=== PATIENT | female | born 1955 | race Caucasian/White ===

== ENCOUNTER 2018-12-21 18:00 | Inpatient (IN) | payer OTHER ==
[2018-12-21] MEDS ORDERED: NS 1,000 ML IV ONE (18:20)
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
[2018-12-21] MEDS ORDERED: METOCLOPRAMIDE 10 MG/2 ML VIAL IVP ONE (18:21)
[2018-12-21] MEDS ORDERED: IOPAMIDOL (ISOVUE 370) 100 ML BTL IV ONE (18:22)
[2018-12-21 18:27] LABS: PLATELET COUNT 380 10^3/uL (150-400)
[2018-12-21 18:37] LABS: INR 0.93 (0.83-1.16); PROTIME(PATIENT) 12.7 SEC (12.0-15.0)
[2018-12-21] MEDS ORDERED: HYDROmorphONE/DILAUDID 2 MG/ML INJ IVP ONE (19:01)
--- NOTE | 2018-12-21 19:15 | CPEKG ---
Test Reason : OPEN Blood Pressure : / mmHG Vent. Rate : 074 BPM Atrial Rate : 074 BPM P-R Int : 161 ms QRS Dur : 101 ms QT Int : 413 ms P-R-T Axes : 060 038 059 degrees QTc Int : 459 ms Sinus rhythm Low voltage, precordial leads Confirmed by Edwin Wilde ([id number]) on 12/21/2018 7:15:06 PM Referred By: EDWIN WILDE Confirmed By:Edwin Wilde
[2018-12-21] MEDS ORDERED: ONDANSETRON 4 MG/2 ML VIAL ONE (20:18)
[2018-12-21] MEDS ORDERED: ONDANSETRON 4 MG/2 ML VIAL IVP ONE (20:19)
[2018-12-21] MEDS ORDERED: ONDANSETRON 4 MG/2 ML VIAL IVP PRN (20:36)
[2018-12-21] MEDS ORDERED: MECLIZINE HCL 25 MG TAB PO ONE (21:45)
[2018-12-21] MEDS ORDERED: MECLIZINE HCL 25 MG TAB ONE (21:46)
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
[2018-12-21] MEDS: IBUPROFEN 600 MG TAB PO SCH ×2 (22:29→22:46)
[2018-12-21] MEDS: D5W 1/2 NS 1,000 ML IV SCH (22:45)
[2018-12-21] MEDS: ACETAMINOPHEN 325 MG TAB PO PRN (22:48)
[2018-12-21] MEDS ORDERED: PROMETHAZINE HCL 25 MG/ML INJ IVP PRN (23:12)
[2018-12-22] MEDS: ONDANSETRON DISINTEGRATING 4 MG TAB PO PRN ×3 (00:30→17:57)
[2018-12-22] MEDS: ACETAMINOPHEN 325 MG TAB PO PRN ×2 (03:51→15:59)
[2018-12-22] MEDS: IBUPROFEN 600 MG TAB PO SCH ×3 (06:25→21:54)
--- NOTE | 2018-12-22 15:13 | ASMTCMCOM ---
CM Note CM Note Notes: Pt has concussion after fall on ice. OT/PT/HEAD BANQUET WAITRESS clear pt for home. Pt will have someone stay with her at d/c. No CM d/c needs identified. CM available for changes/needs. Date Signed: 12/22/2018 03:12 PM Electronically Signed By:JUAN DANIEL Quesada
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
[2018-12-22] MEDS: HYDROCODONE/APAP 5/325 TAB PO PRN (19:43)
[2018-12-23] MEDS: HYDROCODONE/APAP 5/325 TAB PO PRN (04:04)
[2018-12-23] MEDS: IBUPROFEN 600 MG TAB PO SCH ×2 (05:49→14:20)
[2018-12-23] MEDS: ONDANSETRON DISINTEGRATING 4 MG TAB PO PRN ×3 (08:37→16:55)
[2018-12-23] MEDS: ENOXAPARIN 40 MG/0.4 ML SYR SC SCH (08:38)
[2018-12-23] MEDS: ACETAMINOPHEN 325 MG TAB PO PRN ×2 (09:14→16:55)
[2018-12-23] MEDS ORDERED: CARBOXYMETHYLCELLULOSE 1% 0.4 ML DROPERETTE EACHEYE PRN (11:39)
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
[2018-12-23] MEDS: D5W 1/2 NS 1,000 ML IV SCH (14:20)
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
[2018-12-23] MEDS ORDERED: KETOROLAC 30 MG/1 ML SDV IVP ONE (17:38)
[2018-12-23] MEDS: PROMETHAZINE HCL 25 MG/ML INJ IVP PRN (19:54)
[2018-12-23] MEDS: IBUPROFEN 600 MG TAB PO PRN (19:54)
[2018-12-23] MEDS: ACETAMINOPHEN 500 MG TAB PO PRN (23:18)
[2018-12-23] MEDS: KETOROLAC 15 MG/1 ML SDV IVP SCH (23:52)
[2018-12-24] MEDS: IBUPROFEN 600 MG TAB PO PRN ×2 (04:19→12:34)
[2018-12-24] MEDS: KETOROLAC 15 MG/1 ML SDV IVP SCH ×4 (05:43→23:26)
[2018-12-24] MEDS ORDERED: SCOPOLAMINE HYDROBROMIDE 1 MG/3 DAYS PATCH TD SCH (08:00)
[2018-12-24] MEDS: ENOXAPARIN 40 MG/0.4 ML SYR SC SCH (08:46)
[2018-12-24] MEDS: ACETAMINOPHEN 500 MG TAB PO PRN ×2 (08:47→21:39)
[2018-12-24] MEDS: PROMETHAZINE HCL 25 MG/ML INJ IVP PRN (08:47)
--- NOTE | 2018-12-24 10:28 | TRAUMAPN ---
Trauma Progress Note Assessment/Plan: 62yo F s/p likely mech fall c CHI - patients post-concussive Sx persist and per her report are worse. OK when lying down but very dizzy with really any movement - Still remains neuro intact, GARCIA but Sx are concerning giving likely mechanism was fall from standing - given above, plan for MR of head and c-spine today. - also adding scope patch - Subjective: still very dizzy and nauseated Objective: Vital Signs Temp Pulse Resp BP Pulse Ox 36.7 C 67 16 165/105 H 90 L 12/24/18 08:00 12/24/18 08:00 12/24/18 08:00 12/24/18 08:00 12/24/18 08:00 12/23/18 12/24/18 12/25/18 05:59 05:59 05:59 Intake Total 0 Output Total 400 150 Balance 1650 -150 PT 12.7 SEC (12.0-15.0) 12/21/18 18:23 INR 0.93 (0.83-1.16) 12/21/18 18:23
[2018-12-25] MEDS: KETOROLAC 15 MG/1 ML SDV IVP SCH ×2 (05:31→11:41)
--- NOTE | 2018-12-25 07:49 | TRAUMAPN ---
Trauma Progress Note Assessment/Plan: 62yo F s/p likely mech fall c CHI. c/o markedly improved dizziness with movement. able to independently go to BR and sit up - feels best when upright. scopalamine patch helped quite a bit. MRI with subtle small possible SAH. improved right lateral neck pain. no extremity numbness or tingling. AVSS. alert, comfortable. right trap/muscular neck tenderness improved heart reg lungs clear abd nontender ext unremarkable neuro alert and appopriate, moving easily today ASSESSMENT/PLAN CHI with possible small SAH and post-concussive syndrome. improved with supportive care, PT/OT/ST, scopalamine. partner back in town. patient ready for dc today. ST follow-up as outpatient. f/u MD as needed. instructions/ restrictions reviewed. . Objective: Vital Signs Temp Pulse Resp BP Pulse Ox 36.7 C 69 16 135/88 H 91 L 12/24/18 23:24 12/24/18 23:24 12/24/18 23:24 12/24/18 23:24 12/24/18 23:24 12/24/18 12/25/18 12/26/18 05:59 05:59 05:59 Intake Total 0 1300 Output Total 400 350 Balance 1650 950 PT 12.7 SEC (12.0-15.0) 12/21/18 18:23 INR 0.93 (0.83-1.16) 12/21/18 18:23
[2018-12-25 08:21] VITALS: BP 145/90
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
[2018-12-25] MEDS: ENOXAPARIN 40 MG/0.4 ML SYR SC SCH (09:06)
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
[2018-12-27] MEDS ORDERED: PATCH REMOVAL 1 EA PATCH TD SCH (07:54)
== END 2018-12-25 13:07 | disposition home or self-care (01) | DRG 84 ==
LOC: F3N 22:07 → OBSVTOIN 12-23 15:39
PROVIDERS: ADMIT Surgery; ATTEND Surgery
DX: S06.6X9A Traumatic subarachnoid hemorrhage with loss of consciousness of unspecified duration, initial encounter (principal); W00.0XXA Fall on same level due to ice and snow, initial encounter; Y92.481 Parking lot as the place of occurrence of the external cause; E66.9 Obesity, unspecified; Z68.36 Body mass index [BMI] 36.0-36.9, adult
CPT/HCPCS: 80305; 84484-ER; 92507-GN; 92523-GN; 96374; 97116-GP; 97161-GP; 97166-GO; 97530-GP; G0378; G0480; J1170; J1200; J1650; J1885; J2405; J2550; J2765; Q9967